=== PATIENT | male | born 1975 | race Caucasian/White ===

== ENCOUNTER 2024-03-09 16:39 | Emergency (ER) | payer SELFPAY ==
[~2024-03-09] VITALS: Ht 167.6 cm; Wt 82.0 kg
[2024-03-09 16:43] VITALS: O2SAT 100
[2024-03-09 17:00] VITALS: TEMP 36.72516
[2024-03-09] MEDS ORDERED: LIDOCAINE HCL/EPINEPHRINE 1%-EPI 1:100,000 10ML VIAL INFIL ONE (17:00)
[2024-03-09] MEDS ORDERED: TETANUS, DIPHTHERIA, PERTUSSIS VAC/PF 0.5ML (>10YR OLD) IM ONE (17:00)
[2024-03-09] MEDS: LIDOCAINE HCL/EPINEPHRINE 1%-EPI 1:100,000 20ML VIAL INFIL NR (18:15)
[2024-03-09] MEDS ORDERED: BO1 TP (19:19)
[2024-03-09] MEDS: TETANUS, DIPHTHERIA, PERTUSSIS VAC/PF 0.5ML (>10YR OLD) IM ONE (19:32)
[2024-03-09 20:25] VITALS: BP 139/91; PULSE 90; RESP 14; O2SAT 100
== END 2024-03-09 20:26 | disposition home or self-care (01) ==
LOC: ER 16:39
DX: S06.0X0A Concussion without loss of consciousness, initial encounter (principal); S01.112A Laceration without foreign body of left eyelid and periocular area, initial encounter; Y08.89XA Assault by other specified means, initial encounter; Y93.89 Activity, other specified; Y92.89 Other specified places as the place of occurrence of the external cause; Y99.8 Other external cause status
CPT/HCPCS: 70450; 72125; 90715; 12011; 90471; 99285; J3490; Z7610 ×3